=== PATIENT | male | born 1995 | race Caucasian/White ===

== ENCOUNTER 2020-06-24 13:36 | Emergency (ER) | payer BC ==
--- NOTE | 2020-06-24 15:05 | ER ---
Nurse's Notes [facility] Name: Catracho Roberson Age: 25 yrs Sex: Male : 1995 Arrival Date: 06/24/2020 Time: 13:38 Bed 23 Private MD: Diagnosis: Acute upper respiratory infection, unspecified Presentation: 06/24 13:54 Chief complaint: Patient states: cough, sneezing, body aches , runny nose, sore throat iw X 3 days. Coronavirus screen: Client presents with at least one sign or symptom that may indicate coronavirus-19. Standard/surgical mask placed on the client. Provider contacted for isolation considerations. Ebola Screen: Patient negative for fever greater than or equal to 101.5 degrees Fahrenheit, and additional compatible Ebola Virus Disease symptoms Patient denies exposure to infectious person. Patient denies travel to an Ebola-affected area in the 21 days before illness onset. No symptoms or risks identified at this time. Initial Sepsis Screen: Does the patient meet any 2 criteria? No. Patient's initial sepsis screen is negative. Does the patient have a suspected source of infection? No. Patient's initial sepsis screen is negative. Risk Assessment: Do you want to hurt yourself or someone else? Patient reports no desire to harm self or others. Onset of symptoms was June 21, 2020. 13:54 Method Of Arrival: Ambulatory iw 13:54 Acuity: NICOLASA 4 iw Triage Assessment: 14:50 General: Appears in no apparent distress. iw 14:50 General: Behavior is calm. iw Historical: - Allergies: 13:55 No Known Allergies; iw - Home Meds: 13:55 None [Active]; iw - PMHx: 13:55 None; iw - PSHx: 13:55 None; iw - Immunization history:: Adult Immunizations not up to date. - Social history:: Smoking status: Patient reports the use of cigarette tobacco products, smokes one pack cigarettes per day. Screenin:19 Abuse screen: Denies threats or abuse. Denies injuries from another. Nutritional iw screening: No deficits noted. Tuberculosis screening: No symptoms or risk factors identified. Fall Risk None identified. Assessment: 14:20 General: Appears in no apparent distress. Behavior is calm, cooperative. Pain: iw Complains of pain in head. Neuro: Level of Consciousness is awake, alert, obeys commands, Oriented to person, place, time, situation, Moves all extremities. Full function. Cardiovascular: Patient's skin is warm and dry. Respiratory: Airway is patent Respiratory effort is even, unlabored, Breath sounds are clear bilaterally. EENT: Throat is pink Reports pain when swallowing. Derm: Skin is pink, warm \T\ dry. normal. Musculoskeletal: Range of motion: intact in all extremities. Vital Signs: 13:56 BP 147 / 80; Pulse 78; Resp 16; Temp 98.2; Pulse Ox 97% on R/A; Weight 102.06 kg; iw Height 5 ft. 10 in. (177.80 cm); 13:56 Body Mass Index 32.28 (102.06 kg, 177.80 cm) iw ED Course: 13:38 Patient arrived in ED. bg2 13:40 Xenia Molina FNP-C is [facility]. kb 13:40 Brandon Bear MD is Attending Physician. kb 13:55 Triage completed. iw 14:00 Arm band placed on. iw 14:16 Elvia Estrada, RN is Primary Nurse. iw 14:20 Patient has correct armband on for positive identification. iw 15:19 No provider procedures requiring assistance completed. Patient did not have IV access iw during this emergency room visit. Administered Medications: No medications were administered Outcome: 15:04 Discharge ordered by MD. kb 15:19 Discharged to home ambulatory. iw 15:19 Condition: good 15:19 Discharge instructions given to patient, Instructed on discharge instructions, follow up and referral plans. Demonstrated understanding of instructions, follow-up care. 15:20 Patient left the ED. iw Addendum: 06/27/2020 12:17 Addendum: COVID-19 Result: Negative result given to RN to notify pt. Notified pt of a a5 negative COVID 19 swab results. Pt advised that even with a negative test result they should remain in isolation until symptom free for 3 days without medication. Pt also advised to return to the ED for worsening symptoms. Signatures: Xenia Molina FNP-C FNP-Elvia Joseph, BERNARDO CHANG Kimberley Breaux RN RN aaTiffany Muñoz bg2
--- NOTE | 2020-06-24 15:05 | EDPHYS ---
Physician Documentation [facility] Name: Catracho Roberson Age: 25 yrs Sex: Male : 1995 Arrival Date: 06/24/2020 Time: 13:38 Bed 23 Private MD: ED Physician Brandon Bear HPI: 06/24 14:13 This 25 yrs old Male presents to ER via Ambulatory with complaints of kb Bodyaches, Sore Throat, Cough. 14:14 The patient or guardian reports cough, that is intermittent, described as mild, flu kb symptoms, myalgias. Onset: The symptoms/episode began/occurred 3 day(s) ago. Severity of symptoms: At their worst the symptoms were mild, moderate, in the emergency department the symptoms are unchanged. Modifying factors: The symptoms are alleviated by nothing, the symptoms are aggravated by nothing. Associated signs and symptoms: Pertinent positives: rhinorrhea, sore throat, Pertinent negatives: chest pain, diarrhea, ear ache, fever, nausea, vomiting. The patient has not experienced similar symptoms in the past. The patient has not recently seen a physician. Pt reports cough, congestion, sore throat, bodyaches for 3 days. . Historical: - Allergies: 13:55 No Known Allergies; iw - Home Meds: 13:55 None [Active]; iw - PMHx: 13:55 None; iw - PSHx: 13:55 None; iw - Immunization history:: Adult Immunizations not up to date. - Social history:: Smoking status: Patient reports the use of cigarette tobacco products, smokes one pack cigarettes per day. ROS: 14:13 Cardiovascular: Negative for chest pain, palpitations, and edema, Abdomen/GI: Negative kb for abdominal pain, nausea, vomiting, diarrhea, and constipation, Back: Negative for injury and pain, MS/Extremity: Negative for injury and deformity, Skin: Negative for injury, rash, and discoloration, Neuro: Negative for headache, weakness, numbness, tingling, and seizure. 14:13 Constitutional: Positive for body aches, malaise. 14:13 ENT: Positive for rhinorrhea, sinus congestion, sore throat. 14:13 Respiratory: Positive for cough, Negative for dyspnea on exertion, hemoptysis, orthopnea, pleurisy, shortness of breath, sputum production, wheezing. Exam: 14:12 Constitutional: This is a well developed, well nourished patient who is awake, alert, kb and in no acute distress. Head/Face: Normocephalic, atraumatic. Chest/axilla: Normal chest wall appearance and motion. Nontender with no deformity. No lesions are appreciated. Cardiovascular: Regular rate and rhythm with a normal S1 and S2. No gallops, murmurs, or rubs. Normal PMI, no JVD. No pulse deficits. Respiratory: Lungs have equal breath sounds bilaterally, clear to auscultation and percussion. No rales, rhonchi or wheezes noted. No increased work of breathing, no retractions or nasal flaring. Abdomen/GI: Soft, non-tender, with normal bowel sounds. No distension or tympany. No guarding or rebound. No evidence of tenderness throughout. Skin: Warm, dry with normal turgor. Normal color with no rashes, no lesions, and no evidence of cellulitis. MS/ Extremity: Pulses equal, no cyanosis. Neurovascular intact. Full, normal range of motion. Neuro: Awake and alert, GCS 15, oriented to person, place, time, and situation. Cranial nerves II-XII grossly intact. Motor strength 5/5 in all extremities. Sensory grossly intact. Cerebellar exam normal. Normal gait. 14:12 ENT: Nose: is normal, Mouth: is normal, Posterior pharynx: Airway: normal, no evidence of obstruction, erythema, that is moderate. Vital Signs: 13:56 BP 147 / 80; Pulse 78; Resp 16; Temp 98.2; Pulse Ox 97% on R/A; Weight 102.06 kg; iw Height 5 ft. 10 in. (177.80 cm); 13:56 Body Mass Index 32.28 (102.06 kg, 177.80 cm) iw MDM: 13:57 Patient medically screened. kb 14:13 Data reviewed: vital signs, nurses notes. Data interpreted: Pulse oximetry: on room air kb is 99 %. Interpretation: normal. 15:04 Counseling: I had a detailed discussion with the patient and/or guardian regarding: the kb historical points, exam findings, and any diagnostic results supporting the discharge/admit diagnosis, lab results, the need for outpatient follow up, a family practitioner, to return to the emergency department if symptoms worsen or persist or if there are any questions or concerns that arise at home. 06/24 13:40 Order name: Flu; Complete Time: 15:01 kb 06/24 13:40 Order name: Strep; Complete Time: 15:00 kb 06/24 15:01 Order name: Throat Culture EDDC 06/24 15:02 Order name: COVID-19 kb 06/24 15:02 Order name: CORONAVIRUS EDDC Administered Medications: No medications were administered Disposition: 15:42 Co-signature as Attending Physician, Brandon Bear MD. rn Disposition: 06/24/20 15:04 Discharged to Home. Impression: Acute upper respiratory infection, unspecified. - Condition is Stable. - Discharge Instructions: Upper Respiratory Infection, Adult, [id number], COVID-19. - Medication Reconciliation Form, Thank You Letter, Antibiotic Education, Prescription Opioid Use, Work release form form. - Follow up: Emergency Department; When: As needed; Reason: Worsening of condition. Follow up: Private Physician; When: 2 - 3 days; Reason: Recheck today's complaints, Continuance of care, Re-evaluation by your physician. Signatures: Dispatcher [employer] Xenia Ch, DRYING OVEN TENDER-C DRYING OVEN TENDER-Ckb Elvia Estrada, RN RN Brandon Strong MD MD government affairs researcher: (The following items were deleted from the chart) 15: 15:04 06/24/2020 15:04 Discharged to Home. Impression: Acute upper respiratory iw infection, unspecified. Condition is Stable. Forms are Medication Reconciliation Form, Thank You Letter, Antibiotic Education, Prescription Opioid Use. Follow up: Emergency Department; When: As needed; Reason: Worsening of condition. Follow up: Private Physician; When: 2 - 3 days; Reason: Recheck today's complaints, Continuance of care, Re-evaluation by your physician. kb
[2020-06-24 18:28] VITALS: BP 147/80; TEMP 98.2; O2SAT 97
== END 2020-06-24 15:20 | disposition home or self-care (01) ==
LOC: ER 13:36
DX: J06.9 Acute upper respiratory infection, unspecified (principal); Z20.828 Contact with and (suspected) exposure to other viral communicable diseases; F17.210 Nicotine dependence, cigarettes, uncomplicated
CPT/HCPCS: 87070; 87081; 87804 ×2; 99281; U0002